=== PATIENT | female | born 1975 | race Caucasian/White ===

== ENCOUNTER 2016-11-29 17:57 | Emergency (ER) | END 2016-11-29 18:41 | disposition left against medical advice (07) | LOC: UCCORT 17:57 | DX: Z00.00 Encounter for general adult medical examination without abnormal findings (principal); Z53.21 Procedure and treatment not carried out due to patient leaving prior to being seen by health care provider ==

== ENCOUNTER 2017-02-05 19:22 | Emergency (ER) | payer BC ==
[2017-02-05 20:18] VITALS: BP 138/88
--- NOTE | 2017-02-05 20:34 | UC ---
HPI Febrile Illness - HPI Summary HPI Summary: Yesterday she woke up feeling like her ears were full. Her face was puffy, and her glands were swollen and tender. She has been coughing up yellow mucus. Her has been sick for the past week with a sinus infection. She is also complaining of a sore throat. Has a history of frequent sinus infections that she has seen ENT for. She states that they had told her it was not bad enough to require surgery. She takes over-the counter medications for allergies. - History of Current Complaint Chief Complaint: UCRespiratory Time Seen by Provider: 02/05/17 20:19 Hx Obtained From: Patient Onset/Duration: Started Days Ago Initial Severity: Mild Current Severity: Moderate Aggravating Factors: Other: - dry air Alleviating Factors: Nothing Associated Signs and Symptoms: Sore Throat, Other: - swollen glands Related History: Exposure to: - who has sinus infection and mother who has influenza - Allergy/Home Medications Allergies/Adverse Reactions: Allergies Allergy/AdvReac Type Severity Reaction Status Date / Time Azithromycin [From Zithromax] Allergy Severe Hives Verified 10/20/15 15:24 Clindamycin Allergy Severe Hives Verified 10/20/15 15:24 Doxycycline Allergy Severe Hives Verified 10/20/15 15:24 Erythromycin Allergy Severe Hives Verified 10/20/15 15:24 Minocycline Allergy Severe Hives Verified 10/20/15 15:24 Sulfa Drugs Allergy Severe Hives Verified 10/20/15 15:24 Tetracycline Allergy Severe Hives Verified 10/20/15 15:24 Meperidine [From Demerol HCl] Allergy Intermediate Vomiting Verified 10/20/15 15 :24 Home Medications: Home Medications Azelastine 0.15% NASAL(NF) [Astepro 0.15% NASAL (NF)] 1 spray NASAL BID PRN 06/16 [History Confirmed 02/05/17] Benzonatate [Tessalon Perles] 200 mg PO TID PRN 02/05/17 [History Confirmed 06/16] Losartan TAB* [Cozaar TAB*] 25 mg PO DAILY 02/05/17 [History Confirmed 02/05/17] PMH/Surg Hx/FS Hx/Imm Hx Previously Healthy: Yes Endocrine/Hematology History: Denies: Hx Diabetes Cardiovascular History: Reports: Hx Hypertension Respiratory History: Denies: Hx Asthma - Surgical History Surgery Procedure, Year, and Place: tonsilectomy. wisdom teeth extraction Infectious Disease History: No Infectious Disease History: Denies: Traveled Outside the [place] in Last 30 Days - Family History Known Family History: Positive: None - Social History Occupation: Employed Full-time Lives: With Family Alcohol Use: Occasionally Substance Use Type: Reports: None Smoking Status (MU): Never Smoked Tobacco Review of Systems Constitutional: Fever Skin: Negative Eyes: Negative ENT: Sore Throat, Ear Ache, Nasal Discharge Respiratory: Cough Cardiovascular: Negative Gastrointestinal: Negative Genitourinary: Negative Motor: Negative Neurovascular: Negative Musculoskeletal: Negative Neurological: Negative Psychological: Negative All Other Systems Reviewed And Are Negative: Yes Physical Exam Triage Information Reviewed: Yes Appearance: Well-Appearing, No Pain Distress, Well-Nourished Vital Signs: Initial Vital Signs Temp 100.9 F 02/05/17 20:09 Pulse 98 02/05/17 20:09 Resp 19 02/05/17 20:09 BP 138/88 02/05/17 20:09 Pulse Ox 98 02/05/17 20:09 Vital Signs Reviewed: Yes Eye Exam: Normal Eyes: Positive: Conjunctiva Clear ENT Exam: Other ENT: Positive: Hearing grossly normal, Pharyngeal erythema, TMs normal. Negative: Tonsillar swelling, Tonsillar exudate Neck exam: Other Neck: Positive: Tenderness @ - tonsillar and submandibular lymph nodes Respiratory Exam: Normal Respiratory: Positive: Chest non-tender, Lungs clear, Normal breath sounds, No respiratory distress Cardiovascular Exam: Normal Cardiovascular: Positive: RRR, No Murmur Musculoskeletal Exam: Normal Musculoskeletal: Positive: Strength Intact Neurological Exam: Normal Neurological: Positive: Alert, Muscle Tone Normal Psychological Exam: Normal Psychological: Positive: Age Appropriate Behavior Skin Exam: Normal Course/Dx - Course Course Of Treatment: This is most likely a viral illness. We educated the patient that it may take several weeks for symptoms to resolve. She may take Ibuprofen for pain. She should continue her loratidine and nasal sprays for her sinus pressure. - Febrile Illness Differential Diagnoses: Other: - Influenza, Strep Throat, Sinusitis - Diagnoses Clinic Provider Diagnoses: Viral Upper Respiratory Infection Discharge - Discharge Plan Condition: Stable Disposition: HOME Patient Education Materials: Viral Syndrome (ED) Print Language: MONEGASQUE Referrals: Rosalinda Harris PA [Primary Care Provider] - Additional Instructions: This is most likely a viral illness. Symptoms may last for several weeks. If you do not see improvement, or have worsening symptoms please return or follow- up with your primary care provider. You may take Ibuprofen for pain, and continue with loratidine and nasal sprays. This may help with sinus pressure.
== END 2017-02-05 21:13 | disposition home or self-care (01) ==
LOC: UCCORT 19:22
DX: J06.9 Acute upper respiratory infection, unspecified (principal); I10 Essential (primary) hypertension; Z88.1 Allergy status to other antibiotic agents; Z88.5 Allergy status to narcotic agent; Z88.2 Allergy status to sulfonamides
CPT/HCPCS: 87502; 99211; G0463

== ENCOUNTER 2017-08-04 18:32 | Emergency (ER) | payer BC, OTHER ==
[2017-08-04 18:54] VITALS: BP 162/90
--- NOTE | 2017-08-04 19:10 | UC ---
Neck Pain HPI - HPI Summary HPI Summary: 42 year old female with neck pain. complaints of neck pain since April, [place] Seeing chiropractor since, increase in pain per patient unable to sleep. States feels increase swelling in neck. Per patient to have MRI Tuesday. Here for pain management. has had right arm numbness at times and neck spasms and tightness upper back and neck. no weakness in the arms. no trauma otherwise. [ End ] - History of Current Complaint Chief Complaint: UCBackPain Stated Complaint: NECK PAIN Time Seen by Provider: 08/04/17 19:08 Hx Obtained From: Patient Hx Last Menstrual Period: 04/14 Onset/Duration Of Injury/Symptoms: Months Timing: Intermittent Episodes Onset/Duration: Sudden Onset Severity: Moderate - Allergies/Home Medications Allergies/Adverse Reactions: Allergies Allergy/AdvReac Type Severity Reaction Status Date / Time Azithromycin [From Zithromax] Allergy Severe Hives Verified 08/04/17 18:54 Clindamycin Allergy Severe Hives Verified 08/04/17 18:54 Doxycycline Allergy Severe Hives Verified 08/04/17 18:54 Erythromycin Allergy Severe Hives Verified 08/04/17 18:54 Minocycline Allergy Severe Hives Verified 08/04/17 18:54 Sulfa Drugs Allergy Severe Hives Verified 08/04/17 18:54 Tetracycline Allergy Severe Hives Verified 08/04/17 18:54 Meperidine [From Demerol HCl] Allergy Intermediate Vomiting Verified 08/04/17 18 :54 PMH/Surg Hx/FS Hx/Imm Hx Previously Healthy: Yes - Surgical History Surgical History: Yes Surgery Procedure, Year, and Place: tonsilectomy. wisdom teeth extraction - Family History Known Family History: Positive: None - Social History Occupation: Employed Full-time Lives: With Family Alcohol Use: Occasionally Substance Use Type: None Smoking Status (MU): Never Smoked Tobacco - Immunization History Most Recent Influenza Vaccination: JUL 2016 Review Of Systems Musculoskeletal: Positive: Arthralgia, Other: - neck pain Neurological: Positive: Paresthesia All Other Systems Reviewed And Are Negative: Yes Physical Exam Triage Information Reviewed: Yes Appearance: Well-Appearing, No Pain Distress, Well-Nourished Vital Signs: Initial Vital Signs Temp 98.4 F 08/04/17 18:48 Pulse 69 08/04/17 18:48 Resp 16 08/04/17 18:48 BP 162/90 08/04/17 18:48 Pulse Ox 100 08/04/17 18:48 Vital Signs Reviewed: Yes ENT Exam: Normal Dental Exam: Normal Neck exam: Normal Respiratory Exam: Normal Cardiovascular Exam: Normal Musculoskeletal Exam: Normal Musculoskeletal: Positive: Strength Intact, ROM Intact, No Edema, ROM Limited @ - with neck flexion, Other: - paraspinal cervical spine tenderness to palpation C4-6. trap b/l hypertonicity to palpation. No step off. no sp tenderness. Shoulder exam and elbow exam WNL. No neuro deficits Neurological Exam: Normal Psychological Exam: Normal Skin Exam: Normal Neck Pain Course/Dx - Course Course Of Treatment: per patient to get MRI in 4 days from chiro and f/u there. here for pain management for the muscle spasms and radiculopathy down the right arm. becareful with NSAIDs with and steroids. take with meal. - Differential Dx/Diagnosis Differential Dx/HQI/PQRI: Cervical Fracture, Sprain, Strain Provider Diagnoses: cervical radiculopathy Discharge - Discharge Plan Condition: Good Disposition: HOME Prescriptions: Cyclobenzaprine (NF) [Cyclobenzaprine 5 MG (NF)] 5 mg PO BID PRN #10 tab PRN Reason: Spasms Methylprednisolone [Medrol Dosepak 4 MG*] 0 mg PO .SEE ALEXANDRA INSTRUCTION #1 tab Patient Education Materials: Cervical Radiculopathy (ED) Referrals: Rosalinda Harris PA [Primary Care Provider] - 4 Days Miguel Ángel Serrano MD [Medical Doctor] - 5 Days (Ortho referral if needed )
== END 2017-08-04 19:31 | disposition home or self-care (01) ==
LOC: UCCORT 18:32
DX: J45.901 Unspecified asthma with (acute) exacerbation (principal)
CPT/HCPCS: 99212; G0463

== ENCOUNTER 2018-05-22 10:13 | Emergency (ER) | payer BC, OTHER ==
[2018-05-22 11:25] VITALS: BP 139/96
--- NOTE | 2018-05-22 11:45 | UC ---
Throat Pain/Nasal Jorge HPI - HPI Summary HPI Summary: Patient is a 42-year-old female with a 10 day history of sinus pressure and pain. She has a history of frequent sinusitis. She has seen an ENT in the past for this. She is currently on a nonsedating antihistamine as well as a intranasal steroid spray. She has multiple antibiotic allergies. She has significant postnasal drip as well as a cough. She denies any fever or chills. She has no nausea vomiting or diarrhea. She denies any chest pain or shortness of breath. - History of Current Complaint Chief Complaint: UCGeneralIllness Stated Complaint: SINUS COMPLAINT Time Seen by Provider: 05/22/18 11:16 Hx Obtained From: Patient Hx Last Menstrual Period: 04/14 Onset/Duration: Sudden Onset, Lasting Weeks Severity: Severe Pain Intensity: 7 Pain Scale Used: 0-10 Numeric Cough: Nonproductive Associated Signs & Symptoms: Positive: Sinus Discomfort, Nasal Discharge Related History: Prior ENT Surgery, T & A - Allergies/Home Medications Allergies/Adverse Reactions: Allergies Allergy/AdvReac Type Severity Reaction Status Date / Time azithromycin Allergy Diarrhea Verified 05/22/18 11:30 clindamycin Allergy Hives Verified 05/22/18 11:30 doxycycline Allergy Hives Verified 05/22/18 11:30 erythromycin base Allergy Hives Verified 05/22/18 11:30 meperidine Allergy Vomiting Verified 05/22/18 11:30 minocycline Allergy Hives Verified 05/22/18 11:30 Sulfa (Sulfonamide Allergy Hives Verified 05/22/18 11:30 Antibiotics) tetracycline Allergy Hives Verified 05/22/18 11:30 Home Medications: Home Medications Calcium/Soy/Cohosh/Melatonin [Estroven Nighttime 2 mg] 1 tab PO DAILY 05/22/18 [ History Confirmed 05/22/18] PMH/Surg Hx/FS Hx/Imm Hx Previously Healthy: Yes Cardiovascular History: Hypertension - Surgical History Surgical History: Yes Surgery Procedure, Year, and Place: tonsilectomy. wisdom teeth extraction - Family History Known Family History: Positive: Hypertension, Diabetes - Social History Alcohol Use: Occasionally Substance Use Type: None Smoking Status (MU): Never Smoked Tobacco - Immunization History Most Recent Influenza Vaccination: JUL 2016 Review of Systems Constitutional: Negative Skin: Negative Eyes: Negative ENT: Sore Throat, Nasal Discharge, Sinus Congestion, Sinus Pain/Tenderness Respiratory: Cough Cardiovascular: Negative Gastrointestinal: Negative Genitourinary: Negative Motor: Negative Neurovascular: Negative Musculoskeletal: Negative Neurological: Negative Psychological: Negative Is Patient Immunocompromised?: No All Other Systems Reviewed And Are Negative: Yes Physical Exam Triage Information Reviewed: Yes Appearance: Well-Appearing, No Pain Distress, Well-Nourished Vital Signs: Initial Vital Signs Temp 98.2 F 05/22/18 11:16 Pulse 81 05/22/18 11:16 Resp 16 05/22/18 11:16 BP 139/96 05/22/18 11:16 Pulse Ox 98 05/22/18 11:16 Eyes: Positive: Conjunctiva Clear ENT: Positive: Hearing grossly normal, Nasal congestion, Sinus tenderness, Uvula midline. Negative: Nasal drainage, Tonsillar swelling, Tonsillar exudate , Trismus, Muffled voice, Hoarse voice, Dental tenderness Neck: Positive: Supple, Nontender, Enlarged Nodes @ - ant cervical Respiratory: Positive: Lungs clear, Normal breath sounds, No respiratory distress, No accessory muscle use Cardiovascular: Positive: RRR, No Murmur Musculoskeletal: Positive: ROM Intact, No Edema Neurological: Positive: Alert Psychological Exam: Normal Skin Exam: Normal Throat Pain/Nasal Course/Dx - Differential Dx/Diagnosis Provider Diagnoses: acute sinusitis Discharge - Sign-Out/Discharge Documenting (check all that apply): Patient Departure - Discharge Plan Condition: Stable Disposition: HOME Prescriptions: Amoxicillin/Clavulanate TAB* [Augmentin TAB 875*] 875 mg PO BID #20 tab Benzonatate CAP* [Tessalon CAP*] 100 - 200 mg PO TID PRN #28 cap PRN Reason: Cough Patient Education Materials: Sinusitis (ED) Referrals: Rosalinda Harris PA [Primary Care Provider] - If Needed - Billing Disposition and Condition Condition: STABLE Disposition: Home
== END 2018-05-22 11:48 | disposition home or self-care (01) ==
LOC: UCCORT 10:13
DX: J01.90 Acute sinusitis, unspecified (principal); Z88.1 Allergy status to other antibiotic agents; Z88.2 Allergy status to sulfonamides; I10 Essential (primary) hypertension
CPT/HCPCS: 99212; G0463